=== PATIENT | male | born 1950 | race Caucasian/White ===

== ENCOUNTER 2020-01-16 13:55 | Outpatient (CLI) | payer OTHER, MEDICARE ==
--- NOTE | 2020-01-16 15:07 | ULT ---
Soft tissue sonogram right wrist HISTORY: Injury. Evaluate flexor carpi radialis tendon. FINDINGS: Soft tissue/subcutaneous swelling about the lateral aspect of the wrist. Hypoechoic linear defect consistent with subcutaneous laceration overlies the flexor carpi radialis tendon. The injury extends to the superficial margin of the tendon, although there is no evidence of fiber di sruption. No adjacent fluid collection. IMPRESSION: Deep subcutaneous injury at the lateral aspect of the right wrist without sonographic demian dence of tendon involvement.
== END 2020-01-16 13:56 | disposition home or self-care (01) ==
LOC: SCSULT 13:55
PROVIDERS: ATTEND Orthopaedic Surgery Hand Surgery
DX: S61.512D Laceration without foreign body of left wrist, subsequent encounter (principal)
CPT/HCPCS: 76882